=== PATIENT | male | born 1950 | race African-American/Black ===

== ENCOUNTER 2016-05-07 10:56 | Observation (INO) | payer OTHER ==
[~2016-05-07] VITALS: Ht 175.3 cm; Wt 128.3 kg
[~2016-05-07 10:56] MED LIST: ALBUTEROL0.63 MG/3; ASPIRIN325 MG PO; CALCITRIOL0.25 MCG PO; CEFTIN500 MG PO; CRESTOR20 MG PO; DILAUDID8 MG PO; DURAGESIC25 MCG TD; DURAGESIC75 MCG TD; EFFIENT10 MG PO; Effient PO; FLEXERIL10 MG PO; FOLIC ACID1 MG PO; HYDROCHLOROTH12.5 M1 PO; HYDROCHLOROTH12.5 M3 PO; IMDUR30 MG PO; IMDUR60 MG PO; LIPITOR80 MG PO; LITE COAT ASPI325 M1 PO; NITROSTAT,NITR0.4 M1 SL; NITROSTAT0.4 MG; NITROSTAT0.4 MG SL; NORVASC10 MG PO; OXYCODONE10 MG PO; PERCOCET 10/1 TABLET PO; PERCOCET 5-3251 EACH PO; PLETAL50 M1 PO; PLETAL50 MG PO; PROVENTIL,2.5 MG/3 M IH; ROCALTROL0.25 MCG PO; SPIRIVA1 INHALATI; SPIRIVA1 INHALATI IH; SYMBICORT60 INHALA1 IH; SYMBICORT60 INHALAT IH; THEO-DUR,THEOC200 MG PO; TOPROL XL100 MG PO; Tylenol Regular Stre PO; VENTOLIN HFA18 GM IH; VITAMIN D1000 INTUN PO; VITAMIN D1000 UNIT PO; Wellbutrin SR PO; XALATAN2.5 ML BOTH EYES; XOPENEX1.25 MG/0. IH; ZESTRIL,PRINIVIL5 MG PO; ZESTRIL2.5 MG PO; ZYBAN 150 MG T150 MG PO; Zestril,Prinivil PO; oxyCODONE PO; predniSONE PO
[2016-05-07 11:26] LABS: EOSINOPHIL (%) 3.1 % (0-5); EOSINOPHIL COUNT 0.2 K/uL (0-0.3); HEMATOCRIT 44.3 % (38.0-50.0); IMMATURE GRANULOCYTE (%) 0.2 % (0.0-0.7); IMMATURE GRANULOCYTE COUNT 0.1 K/uL; LYMPHOCYTE COUNT 1.3 K/uL (1.0-2.8); MCH 31.4 PG (29.0-34.0); MCHC 33.9 G/DL (30.0-36.0); MCV 92.9 FL (86-99); MEAN PLAT.VOLUME 10.1 uM^3 (9.0-12.4); MONOCYTE (%) 7.2 % (3-12); MONOCYTE COUNT 0.4 K/uL (0-0.8); NEUTROPHIL (%) 66.5 % (45-76); NEUTROPHIL COUNT 3.9 K/uL (1.8-6.4); PLATELET COUNT 219 K/uL (156-360); RBC DIS.WIDTH-CV 14.9 % (11.8-14.6); RBC DIS.WIDTH-SD 48.9 % (39-53); RED BLOOD COUNT 4.77 M/uL (4.00-5.50); WHITE BLOOD COUNT 5.9 K/uL (4.1-10.2)
[2016-05-07 11:36] LABS: INTER. NORMALIZED RATIO 1.1; PROTHROMBIN TIME 10.8 (9.2-11.2); PTT 34.3 (25-32)
[2016-05-07 11:38] LABS: CHLORIDE 111 mEq/L (99-109); POTASSIUM 4.1 mEq/L (3.7-5.4); SODIUM 143 mEq/L (136-147)
[2016-05-07 11:39] LABS: GLUCOSE 109 mg/dL (70-99)
[2016-05-07 11:41] LABS: ANION GAP 10 MEQ/L (2-14)
[2016-05-07 11:43] LABS: GFR ESTIMATE (CALCULATED) 37 mL/min/
[2016-05-07 11:44] LABS: UREA NITROGEN (BUN) 29 mg/dL (9-23)
[2016-05-07 11:54] LABS: TROP-I INTERPRETATION NEGATIVE; TROPONIN-I 0.02 ng/mL (0.0-0.30)
[2016-05-07] MEDS ORDERED: CILOSTAZOL50 MG PO (13:19)
[2016-05-07] MEDS ORDERED: TOPROL XL200 MG PO (13:22)
[2016-05-07] MEDS ORDERED: CALCITRIOL0.5 MCG PO (13:26)
[2016-05-07] MEDS ORDERED: FENTANYL1 EAC2 TD (13:26)
[2016-05-07] MEDS ORDERED: EFFIENT10 MG PO (13:27)
[2016-05-07] MEDS ORDERED: CYCLOBENZAPRINE10 MG PO (13:27)
[2016-05-07 16:09] VITALS: BP 155/77
[2016-05-07 19:45] LABS: TROP-I INTERPRETATION NEGATIVE; TROPONIN-I 0.02 ng/mL (0.0-0.30)
[2016-05-07 20:38] VITALS: BP 143/87
[2016-05-08] VITALS: BP 162/80
[2016-05-08 01:21] LABS: TROP-I INTERPRETATION NEGATIVE; TROPONIN-I 0.04 ng/mL (0.0-0.30)
[2016-05-08 04:00] VITALS: BP 150/68
[2016-05-08 07:02] VITALS: BP 161/92
[2016-05-08 07:16] LABS: ANION GAP 7 MEQ/L (2-14); CHLORIDE 111 MEQ/L (99-109); GFR ESTIMATE (CALCULATED) 44 mL/min/; POTASSIUM 4.5 MEQ/L (3.7-5.4); SAMPLE HEMOLYSIS CHECK 0; SAMPLE ICTERIC CHECK 0; SAMPLE LIPEMIA CHECK 0; SODIUM 141 MEQ/L (136-147); UREA NITROGEN (BUN) 26 mg/dL (9-23)
[2016-05-08 07:18] LABS: GLUCOSE 71 mg/dL (70-99)
[2016-05-08] MEDS ORDERED: NORVASC2.5 MG PO (09:59)
[2016-05-08] MEDS ORDERED: RANITIDINE HCL150 M1 PO (10:00)
== END 2016-05-08 12:16 | disposition home or self-care (01) ==
LOC: EME → EDBD 10:56 → EDOF 12:26 → 5WEST 12:26 → EDOF 12:26 → 5WEST 15:56
PROVIDERS: Emergency Medicine; Nurse Practitioner Adult Health
DX: R07.89 Other chest pain (principal); J44.9 Chronic obstructive pulmonary disease, unspecified; Z99.81 Dependence on supplemental oxygen; I25.10 Atherosclerotic heart disease of native coronary artery without angina pectoris; I12.9 Hypertensive chronic kidney disease with stage 1 through stage 4 chronic kidney disease, or unspecified chronic kidney disease; N18.3 Chronic kidney disease, stage 3 (moderate); E78.5 Hyperlipidemia, unspecified; G47.30 Sleep apnea, unspecified; I73.9 Peripheral vascular disease, unspecified; I25.2 Old myocardial infarction; Z95.5 Presence of coronary angioplasty implant and graft; E66.9 Obesity, unspecified; M54.5 Low back pain; I50.9 Heart failure, unspecified; Z96.643 Presence of artificial hip joint, bilateral; F17.200 Nicotine dependence, unspecified, uncomplicated; Z79.82 Long term (current) use of aspirin; Z79.51 Long term (current) use of inhaled steroids; R94.31 Abnormal electrocardiogram [ECG] [EKG]
CPT/HCPCS: 71010; 78582; 80048; 81003; 83690; 83880; 84484; 85025; 85610; 85730; 93005; 94640; 94760; 94799; 99202; 99281; 99285; A9540; A9567; G0378; J1644; J7030; S0028

== ENCOUNTER 2017-06-18 19:04 | Inpatient (IN) | payer OTHER ==
[~2017-06-18] VITALS: Ht 175.3 cm; Wt 146.8 kg
[~2017-06-18 19:04] MED LIST changes: +CALCITRIOL0.5 MCG PO; +CILOSTAZOL50 MG PO; +CYCLOBENZAPRINE10 MG PO; +FENTANYL1 EAC2 TD; +NORVASC2.5 MG PO; +RANITIDINE HCL150 M1 PO; +TOPROL XL200 MG PO
[2017-06-18 20:11] LABS: HEMATOCRIT 45.5 % (38.0-50.0); HEMOGLOBIN 14.2 G/DL (12.5-16.6); MCH 31.6 PG (29.0-34.0); MCHC 31.2 G/DL (30.0-36.0); MCV 101.1 FL (86-99); PLATELET COUNT 201 K/uL (156-360); RBC DIS.WIDTH-CV 18.5 % (11.8-14.6); WHITE BLOOD COUNT 5.1 K/uL (4.1-10.2)
[2017-06-18] MEDS ORDERED: APRESOLINE50 MG PO (20:21)
[2017-06-18] MEDS ORDERED: METOPROLOL SUC200 MG PO (20:24)
[2017-06-18] MEDS ORDERED: HYDROMORPHONE HC8 MG PO (20:24)
[2017-06-18] MEDS ORDERED: CALCITRIOL0.25 MCG PO (20:24)
[2017-06-18 20:25] LABS: CHLORIDE 118 mEq/L (99-109); POTASSIUM 4.9 mEq/L (3.7-5.4); SODIUM 144 mEq/L (136-147)
[2017-06-18] MEDS ORDERED: AMLODIPINE BESY10 MG PO (20:25)
[2017-06-18 20:26] LABS: GLUCOSE 82 mg/dL (70-99)
[2017-06-18 20:30] LABS: CREATININE 2.5 mg/dL (0.6-1.3); GFR ESTIMATE (CALCULATED) 34 mL/min/ (58.99-99999)
[2017-06-18 20:31] LABS: UREA NITROGEN (BUN) 30 mg/dL (9-23)
[2017-06-18] MEDS ORDERED: VITAMIN D33000 UNIT PO (20:36)
[2017-06-18] MEDS ORDERED: VITAMIN D2000 UNIT PO (20:37)
[2017-06-18 20:43] LABS: TROP-I INTERPRETATION NEGATIVE; TROPONIN-I 0.02 ng/mL (0.0-0.30)
[2017-06-19] VITALS (8 sets, daily range): BP systolic 134–145; BP diastolic 65–101
[2017-06-19 07:10] LABS: CHLORIDE 111 MEQ/L (99-109); CREATININE 2.7 MG/DL (0.6-1.3); GFR ESTIMATE (CALCULATED) 31 mL/min/ (58.99-99999); POTASSIUM 5.7 MEQ/L (3.7-5.4); SODIUM 145 MEQ/L (136-147); UREA NITROGEN (BUN) 36 mg/dL (9-23)
[2017-06-19 07:12] LABS: GLUCOSE 146 mg/dL (70-99)
[2017-06-20 03:33] VITALS: BP 112/77
[2017-06-20 06:39] LABS: ALBUMIN 3.6 G/DL (3.2-4.8); CHLORIDE 108 MEQ/L (99-109); GFR ESTIMATE (CALCULATED) 27 mL/min/ (58.99-99999); GLUCOSE 123 mg/dL (70-99); PHOSPHORUS 5.8 mg/dL (2.5-4.9); POTASSIUM 5.8 MEQ/L (3.7-5.4); SODIUM 141 MEQ/L (136-147); UREA NITROGEN (BUN) 51 mg/dL (9-23)
[2017-06-20 08:05] VITALS: BP 132/66
[2017-06-20 11:40] VITALS: BP 127/73
[2017-06-20 16:12] VITALS: BP 131/82
[2017-06-20 19:12] VITALS: BP 131/73
[2017-06-20 23:35] VITALS: BP 141/71
[2017-06-21 03:44] VITALS: BP 120/67
[2017-06-21 06:19] LABS: ALBUMIN 3.5 G/DL (3.2-4.8); CREATININE 3.2 MG/DL (0.6-1.3); GFR ESTIMATE (CALCULATED) 25 mL/min/ (58.99-99999); GLUCOSE 95 mg/dL (70-99); UREA NITROGEN (BUN) 61 mg/dL (9-23)
[2017-06-21 06:21] LABS: CHLORIDE 108 MEQ/L (99-109); SODIUM 141 MEQ/L (136-147)
[2017-06-21 06:56] VITALS: BP 124/65
[2017-06-21 10:05] LABS: INTACT PARATHYROID HORMONE 202 pg/mL (10-69)
[2017-06-21 11:11] VITALS: BP 118/80
[2017-06-21 12:08] LABS: UR CREATININE CONCENTRATION 137.9 MG/DL
[2017-06-21 15:13] VITALS: BP 118/61
[2017-06-21 19:06] VITALS: BP 139/77
[2017-06-21 23:02] VITALS: BP 136/69
[2017-06-22 04:05] VITALS: BP 140/65
[2017-06-22 06:27] LABS: ALBUMIN 3.5 G/DL (3.2-4.8); CHLORIDE 109 MEQ/L (99-109); CREATININE 3.1 MG/DL (0.6-1.3); GFR ESTIMATE (CALCULATED) 26 mL/min/ (58.99-99999); GLUCOSE 89 mg/dL (70-99); PHOSPHORUS 4.6 mg/dL (2.5-4.9); POTASSIUM 5.4 MEQ/L (3.7-5.4); SODIUM 141 MEQ/L (136-147); UREA NITROGEN (BUN) 62 mg/dL (9-23)
[2017-06-22 07:59] VITALS: BP 142/74
[2017-06-22 11:48] VITALS: BP 145/68
[2017-06-22 16:24] VITALS: BP 134/63
[2017-06-22 20:09] VITALS: BP 136/64
[2017-06-23 00:02] VITALS: BP 138/64
[2017-06-23 06:32] LABS: ALBUMIN 3.3 G/DL (3.2-4.8); CHLORIDE 111 MEQ/L (99-109); CREATININE 3.1 MG/DL (0.6-1.3); GFR ESTIMATE (CALCULATED) 26 mL/min/ (58.99-99999); GLUCOSE 89 mg/dL (70-99); PHOSPHORUS 3.9 mg/dL (2.5-4.9); POTASSIUM 5.3 MEQ/L (3.7-5.4); SODIUM 142 MEQ/L (136-147); UREA NITROGEN (BUN) 61 mg/dL (9-23)
[2017-06-23 07:46] VITALS: BP 135/75
[2017-06-23 16:14] VITALS: BP 130/76
[2017-06-23 23:44] VITALS: BP 148/68
[2017-06-24 06:36] LABS: ALBUMIN 3.2 G/DL (3.2-4.8); CHLORIDE 110 MEQ/L (99-109); CREATININE 2.8 MG/DL (0.6-1.3); GFR ESTIMATE (CALCULATED) 30 mL/min/ (58.99-99999); GLUCOSE 79 mg/dL (70-99); PHOSPHORUS 3.8 mg/dL (2.5-4.9); SODIUM 142 MEQ/L (136-147); UREA NITROGEN (BUN) 60 mg/dL (9-23)
[2017-06-24 06:50] VITALS: BP 143/79
[2017-06-24] MEDS ORDERED: LOPRESSOR25 MG PO (13:36)
[2017-06-24] MEDS ORDERED: FUROSEMIDE40 MG PO (13:36)
[2017-06-24] MEDS ORDERED: PREDNISONE10 MG PO (13:36)
== END 2017-06-24 16:28 | disposition home health service (06) | DRG 190 ==
LOC: EME → EDBD 19:04 → EME 19:04 → EDOF 23:52 → 5EAST 23:52 → ENRESERV 23:55 → 5EAST 06-19 01:16
PROVIDERS: Emergency Medicine; Internal Medicine
DX: J44.1 Chronic obstructive pulmonary disease with (acute) exacerbation (principal); J96.00 Acute respiratory failure, unspecified whether with hypoxia or hypercapnia; I13.0 Hypertensive heart and chronic kidney disease with heart failure and stage 1 through stage 4 chronic kidney disease, or unspecified chronic kidney disease; N17.9 Acute kidney failure, unspecified; I50.33 Acute on chronic diastolic (congestive) heart failure; N18.3 Chronic kidney disease, stage 3 (moderate); I25.10 Atherosclerotic heart disease of native coronary artery without angina pectoris; I25.2 Old myocardial infarction; M47.816 Spondylosis without myelopathy or radiculopathy, lumbar region; Z91.19 Patient's noncompliance with other medical treatment and regimen; Z99.81 Dependence on supplemental oxygen; Z96.643 Presence of artificial hip joint, bilateral; Z68.41 Body mass index [BMI] 40.0-44.9, adult; E87.5 Hyperkalemia; E55.9 Vitamin D deficiency, unspecified; M17.11 Unilateral primary osteoarthritis, right knee; I73.9 Peripheral vascular disease, unspecified; F17.200 Nicotine dependence, unspecified, uncomplicated; E66.2 Morbid (severe) obesity with alveolar hypoventilation; H91.90 Unspecified hearing loss, unspecified ear; N25.81 Secondary hyperparathyroidism of renal origin; I08.3 Combined rheumatic disorders of mitral, aortic and tricuspid valves; I27.20 Pulmonary hypertension, unspecified; E78.5 Hyperlipidemia, unspecified; R91.1 Solitary pulmonary nodule
CPT/HCPCS: 71045; 71046; 71250; 76770; 80048; 80069; 82306; 82570; 83880; 83970; 84156; 84300; 84484; 84540; 85027; 93005; 93306; 94640; 94640 76; 94799; 97530 GP; 99202; 99281; 99285; J0696; J1644; J1940; J2930; J7512; J7644